=== PATIENT | male | born 1955 | race Caucasian/White ===

== ENCOUNTER 2019-07-24 08:03 | Day surgery (SDC) | payer BC, OTHER ==
[2019-07-19 13:17] VITALS: BMI 28.2
[~2019-07-24 08:03] MED LIST: LACTATED RINGERS SOLUTION 1,000 ML IV SCH; ONDANSETRON 4 MG/2 ML VIAL IVPUSH PRN
[2019-07-24] MEDS ORDERED: PROPOFOL 20 ML ONE ×2 (09:29)
[2019-07-24 10:20] VITALS: TEMP 97.7
[2019-07-24 10:28] VITALS: BP 142/67
[2019-07-24 10:43] VITALS: PULSE 62
--- NOTE | 2019-07-27 09:18 | PATH ---
Surgical Pathology Report Patient Name: JEFF AER[facility]. Rec. #: [id number] /Age/Gender: 1955 (Age: 63) / M Account: [id number] Location: [facility] Taken: 07/24/2019 Received: 07/24/2019 Reported: 07/27/2019 Physicians: Sarabjit Stratton M.D. Specimen(s) Received POLYP CECUM Clinical History Screening Postoperative diagnosis: Colon polyp, small internal hemorrhoid Final Diagnosis Cecum, polyp, biopsy: Tubular adenoma. Electronically Signed Tere Aggarwal M.D. Gross Description Received in formalin, labeled "polyp cecum" is a singh, irregular portion of soft tissue measuring 0.5 cm. in greatest dimension. The specimen is submitted in toto in one cassette. MLSZ/07/24/2019 sanml/07/24/2019
== END 2019-07-24 10:40 | disposition home or self-care (01) ==
LOC: FASU-ENDO 08:03
PROVIDERS: ATTEND Internal Medicine Gastroenterology
PROC: 0DBH8ZX Excision of Cecum, Via Natural or Artificial Opening Endoscopic, Diagnostic (ICD-10-PCS; principal; 2019-07-24 09:30)
DX: Z12.11 Encounter for screening for malignant neoplasm of colon (principal); D12.0 Benign neoplasm of cecum; K64.8 Other hemorrhoids
CPT/HCPCS: 82962; 88305-TC

== ENCOUNTER 2021-07-30 07:49 | Emergency (ER) | payer OTHER ==
[2021-07-30 08:01] VITALS: TEMP 99; BMI 29.7
[2021-07-30 08:54] LABS: HEMATOCRIT 44.9 % (35.4-49); HEMOGLOBIN 15.1 GM/dl (11.7-16.9); MCH 31.7 pg (25.7-33.7); MCHC 33.6 g/dl (32.0-35.9); MEAN CELL VOLUME 94.4 fl (80-96); MEAN PLT VOLUME 9.5 fl (7.5-11.1); PLATELET COUNT 212 10^3/uL (134-434); RBC 4.76 M/mm3 (4.00-5.60); RDW 13.2 % (11.9-15.9); WHITE BLOOD COUNT 14.2 K/mm3 (4.0-10.8)
[2021-07-30 09:02] LABS: CALCIUM 9.8 mg/dl (8.5-10); CREATININE 1.3 mg/dl (0.55-1.3); TOT PROT 7.5 g/dl (6.4-8.2)
[2021-07-30 10:11] LABS: EPITHELIAL CELLS RARE /hpf
[2021-07-30 10:18] LABS: PLATELET ESTIMATE ADEQUATE
[2021-07-30] MEDS ORDERED: SODIUM CHLORIDE 500 ML IV STA (10:27)
[2021-07-30] MEDS ORDERED: KETOROLAC TROMETHAMINE 30 MG/1 ML VIAL IVPUSH ONE (10:28)
[2021-07-30] MEDS ORDERED: KETOROLAC TROMETHAMINE 30 MG/1 ML VIAL ONE (10:33)
[2021-07-30 11:28] VITALS: BP 151/86; PULSE 88
== END 2021-07-30 11:39 | disposition home or self-care (01) ==
LOC: FER 07:49
PROC: 3E0333Z Introduction of Anti-inflammatory into Peripheral Vein, Percutaneous Approach (ICD-10-PCS; principal; 2021-07-30)
DX: N23 Unspecified renal colic (principal)
CPT/HCPCS: 36415; 74176-TC; 80053; 81003; 81015; 85025; 87086; 99284-25

== ENCOUNTER 2024-08-02 07:45 | Day surgery (SDC) | payer OTHER ==
[2024-07-27 15:46] VITALS: BMI 27.0
[2024-08-02 08:01] VITALS: TEMP 97.1
[2024-08-02] MEDS ORDERED: PROPOFOL 160 ML ONE (08:40)
[2024-08-02 09:24] VITALS: RESP 18
[2024-08-02 10:04] VITALS: BP 128/74; PULSE 68
== END 2024-08-02 09:50 | disposition home or self-care (01) ==
LOC: FASU-ENDO 07:45
PROVIDERS: ATTEND Internal Medicine Gastroenterology
PROC: 0DBN8ZX Excision of Sigmoid Colon, Via Natural or Artificial Opening Endoscopic, Diagnostic (ICD-10-PCS; principal; 2024-08-02 08:52)
DX: Z12.11 Encounter for screening for malignant neoplasm of colon (principal); D12.7 Benign neoplasm of rectosigmoid junction; Z86.010 Personal history of colon polyps
CPT/HCPCS: 82962; 88305-TC